=== PATIENT | male | born 1940 | race Caucasian/White ===

== ENCOUNTER 2016-11-15 09:19 | Outpatient (CLI) | payer MEDICARE, OTHER ==
[2015-03-25 19:48] VITALS: BP 158/64
== END 2016-11-15 09:20 ==
LOC: POD 09:19
PROVIDERS: ATTEND Podiatrist Public Medicine
DX: B35.1 Tinea unguium (principal); L60.0 Ingrowing nail; M79.674 Pain in right toe(s); M79.675 Pain in left toe(s)
CPT/HCPCS: G0463

== ENCOUNTER 2017-02-21 11:17 | Outpatient (CLI) | payer MEDICARE, OTHER ==
[2015-03-25 19:48] VITALS: BP 158/64
== END 2017-02-21 11:18 ==
LOC: POD 11:17
PROVIDERS: ATTEND Podiatrist Public Medicine
DX: B35.1 Tinea unguium (principal); L60.0 Ingrowing nail; M79.675 Pain in left toe(s); M79.674 Pain in right toe(s); Z79.01 Long term (current) use of anticoagulants
CPT/HCPCS: 11721; G0463

== ENCOUNTER 2017-02-21 11:24 | Outpatient (CLI) | payer MEDICARE, OTHER ==
[2015-03-25 19:48] VITALS: BP 158/64
[2017-02-21 12:56] LABS: BASOPHILS % 1.4 (0.0-1.5); EOSINOPHILS % 3.8 % (0.0-6.8); MEAN CORPUSCULAR VOLUME 87.9 fl (80.0-100.0); MONOCYTES % 7.7 % (0.0-11.0); NEUTROPHILS # 2.7 # k/uL (1.4-7.7)
[2017-02-21 13:27] LABS: eGFR (African) > 60; eGFR (Non-African) > 60
== END 2017-02-21 11:25 ==
LOC: LAB 11:24
PROVIDERS: ATTEND Internal Medicine Cardiovascular Disease
DX: I48.0 Paroxysmal atrial fibrillation (principal); I10 Essential (primary) hypertension
CPT/HCPCS: 36415; 80053; 84439; 84443; 85025

== ENCOUNTER 2017-05-23 10:31 | Outpatient (CLI) | payer MEDICARE, OTHER ==
[2015-03-25 19:48] VITALS: BP 158/64
== END 2017-05-23 10:32 ==
LOC: POD 10:31
PROVIDERS: ATTEND Podiatrist Public Medicine
DX: B35.1 Tinea unguium (principal); L60.0 Ingrowing nail; M79.674 Pain in right toe(s); M79.675 Pain in left toe(s); Z79.01 Long term (current) use of anticoagulants
CPT/HCPCS: 11721; G0463

== ENCOUNTER 2017-08-22 10:08 | Outpatient (CLI) | payer MEDICARE, OTHER ==
[2015-03-25 19:48] VITALS: BP 158/64
== END 2017-08-22 10:15 ==
LOC: POD 10:08
PROVIDERS: ATTEND Podiatrist Public Medicine
DX: B35.1 Tinea unguium (principal); Z79.01 Long term (current) use of anticoagulants; L60.0 Ingrowing nail; M79.674 Pain in right toe(s); M79.675 Pain in left toe(s)
CPT/HCPCS: 11721; G0463